=== PATIENT | male | born 1960 | race Caucasian/White ===

== ENCOUNTER 2019-02-10 07:20 | Day surgery (SDC) | payer OTHER ==
--- NOTE | 2019-02-09 11:34 | EKG ---
Test Date: 2019-02-09 Test Time: 10:20:03 Recreation Therapy Teacher: BECK MEASUREMENT RESULTS: Intervals: Rate: 56 FL: 164 QRSD: 94 QT: 396 QTc: 382 [place]: P: 66 FL: 164 QRS: 18 T: 28 INTERPRETIVE STATEMENTS: Sinus bradycardia with sinus arrhythmia Otherwise normal ECG No previous ECG available for comparison Electronically Signed On 02-09-19 11:34:16 CDT by Aamir Gutiérrez
--- OUTSIDE RECORDS SUMMARY | 2019-02-10 07:23 | XMS REPORT | Summary of Care ---
:1960 Author Organization [facility] Address [address] [place] [address] Care Team Providers Name Role Phone Shukri Cast MD Primary Care Provider Encounter Details Date Type Department Care Team Description 12/19/2018 Patient Secure [facility] Cardiology- Liudmila Frankel MD [address] [place] [address] [place] [address] [phone] Allergies No Known Allergiesdocumented as of this encounter (statuses as of 01/21/2019) Medications Medication Sig Dispensed Refills Start Date End Date Status diltiazem 120 mg 24 hr Take 120 mg by 0 Active capsule mouth daily. documented as of this encounter (statuses as of 01/21/2019) Active Problems Problem Noted Date Atrial fibrillation, new onset 11/22/2018 Snoring 11/22/2018 Witnessed episode of apnea 11/22/2018 Chronic nasal congestion 11/22/2018 documented as of this encounter (statuses as of 01/21/2019) Immunizations Name Administration Dates Next Due TDAP (ADACEL) VACCINE 10/26/2013 documented as of this encounter Social History Tobacco Use Types Packs/Day Years Used Date Never Smoker Smokeless Tobacco: Never Used Alcohol Use Drinks/Week oz/Week Comments Yes occasionally Sex Assigned at Date Recorded Not on file Job Start Date Occupation Industry Not on file Not on file Not on file Travel History Travel Start Travel End No recent travel history available. documented as of this encounter Last Filed Vital Signs Not on filedocumented in this encounter Plan of Treatment Date Type Specialty Care Team Description 05/29/2019 Office Visit Cardiology Liudmila Frankel MD [address] [place] [address] [place] [address] [phone] Health Maintenance Due Date Last Done Comments HEPATITIS C (HCV) SCREEN 1960 Zoster Recombinant Vaccine 2009 (SHINGRIX) (1 of 2) INFLUENZA VACCINE 02/26/2019 COLONOSCOPY 10/27/2019 10/26/2009 DTaP,Tdap,and Td Vaccines (2 - Td) 10/27/2023 10/26/2013 PNEUMOCOCCAL 0-64 YEARS COMBINED Aged Out No longer eligible based on SERIES patient's age to complete this topic documented as of this encounter Results Not on filedocumented in this encounter Insurance Payer Benefit Plan / Group Subscriber ID Effective Dates Phone Address Type AETNA AETNA HMO [id number] 2012-Present HMO documented as of this encounter
--- OUTSIDE RECORDS SUMMARY | 2019-02-10 07:23 | XMS REPORT ---
:1960 [facility] Address [address] [place] [address] Dr. Blue [address] [place] [address] Care Team Providers Name Role Phone Unavailable Unavailable Unavailable Problems This patient has no known problems. Allergies, Adverse Reactions, Alerts This patient has no known allergies or adverse reactions. Medications This patient has no known medications.
[2019-02-10] MEDS ORDERED: Ringers Lactate 1,000 ML IV ONE (07:24)
[2019-02-10] MEDS: OXYMETAZOLINE HCL 0.05% 15ML NAS ONE ×3 (07:30→07:44)
[2019-02-10] MEDS ORDERED: FENTANYL CITR 100 MCG/2 ML ONE (07:44)
[2019-02-10] MEDS ORDERED: ROCURONIUM 50 MG/5 ML VIAL IV ONE (07:45)
[2019-02-10] MEDS ORDERED: LIDOCAINE 2% MPF 5 ML VIAL ONE (07:45)
[2019-02-10] MEDS ORDERED: MIDAZOLAM HCL 2 MG/2 ML INJ ONE (07:45)
[2019-02-10] MEDS ORDERED: PROPOFOL 200 MG/20 ML VIAL IV ONE (07:45)
[2019-02-10] MEDS ORDERED: OXYMETAZOLINE HCL 0.05% 15ML NAS ONE (07:56)
[2019-02-10] MEDS ORDERED: SUCCINYLCHOLINE 20 MG/ML (10 ML) IV ONE (07:58)
[2019-02-10] MEDS: LIDOCAINE 1% W/EPI 1:100,000 MDV 20 ML VIAL ONE ×2 (08:10→08:41)
[2019-02-10] MEDS ORDERED: NA CHLORIDE 0.9% 0 ML ONE (08:40)
[2019-02-10] MEDS ORDERED: dexAMETHasone 4 MG/ML VIAL ONE (09:49)
[2019-02-10] MEDS ORDERED: ONDANSETRON 4 MG/2 ML VIAL ONE (09:49)
--- NOTE | 2019-02-10 09:55 | P.BOP ---
Preoperative diagnosis: nasal obstruction, septal deviation Postoperative diagnosis: same Primary procedure: septoplasty Secondary procedure: turbinate downfracture E Learning Designer: NONE,NONE Estimated blood loss: 15ml Specimen: none Anesthesia: General Implants: Miles splints Fluids & blood products: 1200ml crystalloid Transferred to: Recovery Room Condition: Good
--- NOTE | 2019-02-10 22:00 | OP ---
Date of Procedure: 02/10/2019 Surgeon: Adriana Godinez MD Preoperative Diagnoses: Nasal obstruction, septal deviation. Postoperative Diagnoses: Nasal obstruction, septal deviation. Procedure: Septoplasty with downfracture of inferior turbinates. Indication For Procedure: Oswald Leigh presented with bilateral nasal obstruction. He was noted to have an S-shaped deformity of the nasal septum. The risks, benefits, and alternatives to the proced ure were discussed with the patient who agreed to proceed. Description Of Procedure: The patient was brought to the operating room. He was placed under genera l anesthesia via oral endotracheal tube. The head of bed was turned 90 degrees. The nasal hairs wer e trimmed and then the nasal cavity was packed with Afrin-soaked pledgets. After time for effect, th edilia were removed and the nose was examined using a nasal speculum and headlight. The caudal aspect o f the cartilaginous septum was noted to deviate into the right nasal cavity. There was a left septal spur and prominent left maxillary crest. A right hemitransfixion incision and bilateral mucopericho ndrial flaps were elevated. The posterior aspect of the cartilaginous septum was excised leaving a g enerous L-strut. The bony portion of the septal spur and high left septal deviation was removed usin g scissors and [place] rongeurs. Bony fragments and small cartilaginous fragments were removed using Maria Ines forceps. During elevation of the left mucoperichondrial flap, the mucosal flap tore especi ally in the area over the septal spur. The cartilaginous septum was then repositioned closer to midl ine and secured using a 4-0 PDS suture. The septum then appeared to be midline. A Fernando elevator was used to downfracture the bilateral inferior turbinates in order to improve the nasal airway. Wit h intraoperative decongestion, the turbinates did not appear to be significantly enlarge and decision was made to forego submucous resection. The hemitransfixion incision was then closed with a running plain gut suture. Due to the mucosal tear on the left-hand side, decision was made to place Miles s plints. A Miles airway splint was placed in the right and left nasal cavity and secured to the nasal septum using a single 4-0 nylon suture. The nasopharynx was suctioned. The oropharynx was suctione d. The patient was returned to care of Anesthesia for awakening and extubation in the operating room , which proceeded without difficulty. Complications: None. Specimens: None. Disposition: Patient will follow up with Dr. Godinez in 10-12 days for removal of nasal airway splin ts. MOIRA/PATRICIA Voice ID: [id number] Report ID: [id number]
== END 2019-02-10 13:00 | disposition home or self-care (01) ==
LOC: OR 07:20
PROVIDERS: ATTEND Otolaryngology
PROC: 09SM4ZZ Reposition Nasal Septum, Percutaneous Endoscopic Approach (ICD-10-PCS; principal; 2019-02-10 08:30)
DX: J34.2 Deviated nasal septum (principal); J34.3 Hypertrophy of nasal turbinates; J34.89 Other specified disorders of nose and nasal sinuses; R06.83 Snoring; I48.91 Unspecified atrial fibrillation; Z82.3 Family history of stroke; Z82.49 Family history of ischemic heart disease and other diseases of the circulatory system
CPT/HCPCS: 93005; 30520; 30930; J2704; J0330; J2250; J3010; J2405

== ENCOUNTER 2024-06-18 14:26 | Emergency (ER) | payer OTHER ==
[2024-06-18] MEDS ORDERED: NA CHLORIDE 0.9% 500 ML ONE (14:44)
[2024-06-18 14:55] LABS: Absolute Eosinophils 0.1 K/uL (0-0.5); Absolute Lymphocytes (CBC) 1.2 K/uL (0.7-4.9); Absolute Monocytes 0.5 K/uL (0.1-1.3); Absolute Neutrophil 3.6 K/uL (1.8-8.0); Basophils % 0.5 % (0-1.3); Eosinophils % 1.3 % (0-4.4); Hematocrit 42.2 % (39.6-49.0); Hemoglobin 14.5 g/dL (13.6-17.9); Lymphocytes % 22.4 % (15.3-44.8); MCHC 34.3 g/dL (32.0-36.0); MCV 93.3 fL (80-100); MPV 7.7 fL (7.6-11.3); Monocytes % 9.2 % (3.3-12.3); Neutrophils % 66.6 % (41.7-73.7); Nucleated Red Blood Cells % 0.1 % (0-0); Platelets 306 thou/uL (152-406); RBC Red Blood Cell Count 4.52 M/uL (4.33-5.43); Red Cell Distribution Width 13.2 % (12.1-15.2)
[2024-06-18 15:02] LABS: PT Prothrombin Time 10.9 SECONDS (9.4-12.5); Protime INR 0.97
[2024-06-18 15:09] LABS: Albumin 3.6 g/dL (3.4-5.0); Anion Gap 4.9 mEq/L (5.0-15.0); Bilirubin Total 0.5 mg/dL (0.2-1.0); Globulin 3.5 g/dL (2.3-3.5); Potassium 3.9 mEq/L (3.5-5.1); Protein, Total 7.1 g/dL (6.4-8.2)
--- NOTE | 2024-06-18 15:31 | ER ---
Nurse's Notes [facility] Name: Oswald Leigh Age: 64 yrs Sex: Male : 1960 Arrival Date: 06/18/2024 Time: 14:26 Bed 5 Private MD: Diagnosis: Edema, unspecified;Pain in right lower leg-swelling right lower extremity;Cellulitis and acute lymphangitis of other parts of limb-right lower extremity Presentation: 06/18 14:40 Chief complaint: Patient states: right calf swollen and tender x1 week. No redness. tm6 Coronavirus screen: Client denies travel out of the [place] in the last 14 days. Ebola Screen: Patient negative for fever greater than or equal to 101.5 degrees Fahrenheit, and additional compatible Ebola Virus Disease symptoms Patient denies exposure to infectious person. Patient denies travel to an Ebola-affected area in the 21 days before illness onset. No symptoms or risks identified at this time. Initial Sepsis Screen: Does the patient meet any 2 criteria? No. Patient's initial sepsis screen is negative. Does the patient have a suspected source of infection? No. Patient's initial sepsis screen is negative. Risk Assessment: Do you want to hurt yourself or someone else? Patient reports no desire to harm self or others. Onset of symptoms was June 10, 2024. 14:40 Method Of Arrival: Ambulatory tm6 14:40 Acuity: DARIUS 3 tm6 Triage Assessment: 14:41 General: Appears in no apparent distress. Behavior is calm, cooperative. Pain: tm6 Complains of pain in right calf Pain currently is 1 out of 10 on a pain scale. Pain began x1 week. EENT: No signs and/or symptoms were reported regarding the EENT system. Neuro: Level of Consciousness is awake, alert, obeys commands, Oriented to person, place, time, situation. Cardiovascular: Patient's skin is warm and dry. Respiratory: Airway is patent Respiratory effort is even, unlabored, Respiratory pattern is regular, symmetrical. GI: No signs and/or symptoms were reported involving the gastrointestinal system. Abdomen is flat, non-distended. : No signs and/or symptoms were reported regarding the genitourinary system. Derm: No signs and/or symptoms reported regarding the dermatologic system. Musculoskeletal: Reports pain in right calf since x1 week. Pain is 1 out of 10 on a pain scale. swelling in right calf x1 week. Historical: - Allergies: 14:41 No Known Allergies; tm6 - PMHx: 14:41 Hypercholesterolemia; tm6 - PSHx: 14:41 None; tm6 - Immunization history:: Flu vaccine is up to date. - Infectious Disease History:: Denies. - Social history:: Smoking status: Patient denies any tobacco usage or history of. - Family history:: not pertinent. Screenin:47 [facility] ED Fall Risk Assessment (Adult) History of falling in the last 3 months, tm6 including since admission No falls in past 3 months (0 pts) Confusion or Disorientation No (0 pts) Intoxicated or Sedated No (0 pts) Impaired Gait No (0 pts) Mobility Assist Device Used No (0 pt) Altered Elimination No (0 pt) Score/Fall Risk Level 0 - 2 = Low Risk Oriented to surroundings, Maintained a safe environment. Abuse screen: Denies threats or abuse. Denies injuries from another. Nutritional screening: No deficits noted. Tuberculosis screening: No symptoms or risk factors identified. Assessment: 14:56 General: Appears in no apparent distress. comfortable, well groomed, Behavior is calm, ph cooperative, appropriate for age. Pain: Complains of pain in right leg. Neuro: Level of Consciousness is awake, alert, obeys commands, Oriented to person, place, time, situation. Cardiovascular: Capillary refill < 3 seconds in bilateral fingers Patient's skin is warm and dry. Respiratory: Airway is patent Respiratory effort is even, unlabored, Respiratory pattern is regular, symmetrical. Derm: Skin is pink, warm \T\ dry. Musculoskeletal: Circulation, motion, and sensation intact. Range of motion: intact in all extremities, Swelling present in right leg. Vital Signs: 14:40 BP 135 / 73; Pulse 73; Resp 17; Temp 98.8(O); Pulse Ox 99% on R/A; Weight 77.11 kg; tm6 Height 6 ft. 1 in. ; Pain 1/10; 14:57 BP 124 / 77; Pulse 65; Resp 18; Pulse Ox 98% on R/A; ph 16:07 BP 131 / 72; Pulse 67; Resp 18; Temp 98; Pulse Ox 98% on R/A; ph 14:40 Body Mass Index 22.43 (77.11 kg, 185.42 cm) tm6 14:40 Pain Scale: Adult tm6 ED Course: 14:28 Patient arrived in ED. im 14:32 Pedro Child MD is Attending Physician. jossie 14:37 Ruby Irving, RN is Primary Nurse. ph 14:41 Triage completed. tm6 14:41 Arm band placed on right wrist. tm6 14:47 Patient has correct armband on for positive identification. Placed in gown. Bed in low tm6 position. Call light in reach. Side rails up X 1. Adult w/ patient. Pulse ox on. NIBP on. Door closed. Noise minimized. Lights dimmed. Warm blanket given. Pillow given. 14:47 Inserted saline lock: 22 gauge in right forearm, using aseptic technique. Blood tm6 collected. Flushed with 10 mL NS. Patient maintains SpO2 saturation greater than 95% on room air. 14:48 PT-INR Sent. tm6 14:48 Comprehensive Metabolic Panel Sent. tm6 14:48 CBC with Diff Sent. tm6 15:29 Norris Wilkes MD is Referral Physician. jossie 15:31 US Extremity Venous W Compression Nathan In Process Unspecified. EDMS 15:46 Tib Fib Right XRAY In Process Unspecified. EDMS 16:07 No provider procedures requiring assistance completed. IV discontinued, intact, ph bleeding controlled, No redness/swelling at site. Pressure dressing applied. Administered Medications: 14:48 Drug: NS 0.9% IV 500 ml 500 ml IV at 1 bolus once; to be given as a bolus over 30 tm6 minutes Volume: 500 ml; Route: IV; Rate: 1 bolus; Site: right forearm; 16:06 Follow up: Response: No adverse reaction; IV Status: Completed infusion; IV Intake: ph 500ml 16:06 Drug: Trimethoprim-Sulfamethoxazole PO (160 mg-800 mg (DS) 1 tablet PO once Route: PO; ph 16:06 Follow up: Response: No adverse reaction ph 16:07 Drug: Cephalexin PO 500 mg PO once Route: PO; ph 16:07 Follow up: Response: No adverse reaction ph Medication: 14:56 VIS not applicable for this client. ph Intake: 16:06 IV: 500ml; Total: 500ml. ph Outcome: 15:30 Discharge ordered by . jossie 16:07 Discharged to home ambulatory, with significant other, ph 16:07 Condition: good 16:07 Discharge instructions given to patient, significant other, Instructed on discharge instructions, follow up and referral plans. medication usage, Demonstrated understanding of instructions, follow-up care, medications, Prescriptions given X 3, 16:08 Patient left the ED. ph Signatures: Dispatcher [employer] Pedro Snell MD MD cha Hall, Patricia, RN RN ph Rosalind Meek Tawney RN RN tm6
--- NOTE | 2024-06-18 15:31 | EDPHYS ---
Physician Documentation [facility] Name: Oswald Leigh Age: 64 yrs Sex: Male : 1960 Arrival Date: 06/18/2024 Time: 14:26 Bed 5 Private MD: ED Physician Pedro Child HPI: 06/18 14:59 This 64 yrs old Male presents to ER via Ambulatory with complaints of Leg Swelling - jossie right. 14:59 The patient presents with decreased range of motion, pain, that is acute. The jossie complaints affect the lateral aspect of right calf, right calf, medial aspect of right calf and right sampson. Context: resulted from an unknown cause, the patient can fully bear weight. Onset: The symptoms/episode began/occurred 7 day(s) ago. Modifying factors: The symptoms are alleviated by nothing. the symptoms are aggravated by nothing. Treatment prior to arrival includes: no previous treatment. Severity of symptoms: At their worst the symptoms were moderate, in the emergency department the symptoms are unchanged. The patient has not experienced similar symptoms in the past. Historical: - Allergies: 14:41 No Known Allergies; tm6 - PMHx: 14:41 Hypercholesterolemia; tm6 - PSHx: 14:41 None; tm6 - Immunization history:: Flu vaccine is up to date. - Infectious Disease History:: Denies. - Social history:: Smoking status: Patient denies any tobacco usage or history of. - Family history:: not pertinent. ROS: 14:59 Constitutional: Negative for fever, chills, and weight loss, Eyes: Negative for injury, jossie pain, redness, and discharge, ENT: Negative for injury, pain, and discharge, Neck: Negative for injury, pain, and swelling, Cardiovascular: Negative for chest pain, palpitations, and edema, Respiratory: Negative for shortness of breath, cough, wheezing, and pleuritic chest pain, Abdomen/GI: Negative for abdominal pain, nausea, vomiting, diarrhea, and constipation, Back: Negative for injury and pain, : Negative for injury, bleeding, discharge, and swelling, Skin: Negative for injury, rash, and discoloration, Neuro: Negative for headache, weakness, numbness, tingling, and seizure, Psych: Negative for depression, anxiety, suicide ideation, homicidal ideation, and hallucinations, Allergy/Immunology: Negative for hives, rash, and allergies, Endocrine: Negative for neck swelling, polydipsia, polyuria, polyphagia, and marked weight changes, Hematologic/Lymphatic: Negative for swollen nodes, abnormal bleeding, and unusual bruising, 14:59 MS/extremity: Positive for pain, swelling, tenderness, of the lateral aspect of right calf, right calf, medial aspect of right calf and right sampson, Exam: 14:59 Constitutional: This is a well developed, well nourished patient who is awake, alert, jossie and in no acute distress. Head/Face: Normocephalic, atraumatic. Eyes: Pupils equal round and reactive to light, extra-ocular motions intact. Lids and lashes normal. Conjunctiva and sclera are non-icteric and not injected. Cornea within normal limits. Periorbital areas with no swelling, redness, or edema. ENT: Nares patent. No nasal discharge, no septal abnormalities noted. Tympanic membranes are normal and external auditory canals are clear. Oropharynx with no redness, swelling, or masses, exudates, or evidence of obstruction, uvula midline. Mucous membranes moist. Neck: Trachea midline, no thyromegaly or masses palpated, and no cervical lymphadenopathy. Supple, full range of motion without nuchal rigidity, or vertebral point tenderness. No Meningismus. Chest/axilla: Normal chest wall appearance and motion. Nontender with no deformity. No lesions are appreciated. Cardiovascular: Regular rate and rhythm with a normal S1 and S2. No gallops, murmurs, or rubs. Normal PMI, no JVD. No pulse deficits. Respiratory: Lungs have equal breath sounds bilaterally, clear to auscultation and percussion. No rales, rhonchi or wheezes noted. No increased work of breathing, no retractions or nasal flaring. Abdomen/GI: Soft, non-tender, with normal bowel sounds. No distension or tympany. No guarding or rebound. No evidence of tenderness throughout. Back: No spinal tenderness. No costovertebral tenderness. Full range of motion. Male : Normal genitalia with no discharge or lesions. Skin: Warm, dry with normal turgor. Normal color with no rashes, no lesions, and no evidence of cellulitis. Neuro: Awake and alert, GCS 15, oriented to person, place, time, and situation. Cranial nerves II-XII grossly intact. Motor strength 5/5 in all extremities. Sensory grossly intact. Cerebellar exam normal. Normal gait. Psych: Awake, alert, with orientation to person, place and time. Behavior, mood, and affect are within normal limits. 14:59 Musculoskeletal/extremity: Circulation is intact in all extremities. Sensation intact. Compartment Syndrome exam of affected extremity: is normal. Joints: All joints appear normal with full range of motion. Weight bearing: able to fully bear weight, DVT Exam: negative Homans' sign noted on exam, no appreciated bluish discoloration, no erythema, no increased warmth, pain, swelling, tenderness, Vital Signs: 14:40 BP 135 / 73; Pulse 73; Resp 17; Temp 98.8(O); Pulse Ox 99% on R/A; Weight 77.11 kg; tm6 Height 6 ft. 1 in. ; Pain 1/10; 14:57 BP 124 / 77; Pulse 65; Resp 18; Pulse Ox 98% on R/A; ph 16:07 BP 131 / 72; Pulse 67; Resp 18; Temp 98; Pulse Ox 98% on R/A; ph 14:40 Body Mass Index 22.43 (77.11 kg, 185.42 cm) tm6 14:40 Pain Scale: Adult tm6 MDM: 14:32 Medical Screening Exam initiated jossie 15:01 Differential diagnosis: closed fracture, contusion, tendonitis. Data reviewed: vital jossie signs, nurses notes, lab test result(s), radiologic studies, CT scan, doppler. Consideration of Admission/Observation Escalation of care including admission/observation considered. I considered the following discharge prescriptions or medication management in the emergency department Medications were administered in the Emergency Department. See MAR. Independent interpretation of the following test(s) in the Emergency Department EKG: See my EKG interpretation above. Historians other than the Patient: Spouse/Significant Other: well informed. Care significantly affected by the following chronic conditions: high chlesterol. 06/18 14:33 Order name: CBC with Diff; Complete Time: 15:21 jossie 06/18 14:33 Order name: Comprehensive Metabolic Panel; Complete Time: 15:21 jossie 06/18 14:33 Order name: PT-INR; Complete Time: 15:21 jossie 06/18 15:58 Order name: CK sb4 06/18 14:33 Order name: US Extremity Venous W Compression Nathan; Complete Time: 15:53 jossie 06/18 14:55 Order name: Tib Fib Right XRAY jossie Administered Medications: 14:48 Drug: NS 0.9% IV 500 ml 500 ml IV at 1 bolus once; to be given as a bolus over 30 tm6 minutes Volume: 500 ml; Route: IV; Rate: 1 bolus; Site: right forearm; 16:06 Follow up: Response: No adverse reaction; IV Status: Completed infusion; IV Intake: ph 500ml 16:06 Drug: Trimethoprim-Sulfamethoxazole PO (160 mg-800 mg (DS) 1 tablet PO once Route: PO; ph 16:06 Follow up: Response: No adverse reaction ph 16:07 Drug: Cephalexin PO 500 mg PO once Route: PO; ph 16:07 Follow up: Response: No adverse reaction ph Disposition Summary: 06/18/24 15:30 Discharge Ordered Notes: Location: Home jossie Problem: new jossie Symptoms: have improved jossie Condition: Stable jossie Diagnosis - Edema, unspecified jossie - Cellulitis and acute lymphangitis of other parts of limb - right lower extremity jossie - Pain in right lower leg - swelling right lower extremity(06/18/24 15:37) jossie Followup: jossie - With: Private Physician - When: 2 - 3 days - Reason: Recheck today's complaints, Continuance of care, Re-evaluation by your physician Followup: jossie - With: Norris Wilkes MD - When: 2 - 3 days - Reason: Recheck today's complaints, Re-evaluation by your physician Discharge Instructions: - Discharge Summary Sheet jossie - Cellulitis, Adult jossie - Edema jossie - Musculoskeletal Pain jossie - Cellulitis, Adult, [id number]-[id number] jossie - Edema, Dsnr-[id number]-Bsag [facility] Forms: - Medication Reconciliation Form [facility] - Antibiotic Education jossie - Prescription Opioid Use jossie - Patient Portal Instructions [facility] - Leadership Thank You Letter [facility] Prescriptions: - Cephalexin 500 mg Oral capsule - take 1 capsule ORAL route every 6 hours for 7 days; 28 capsule; Refills: 0, [facility] Product Selection Permitted - Ibuprofen 600 mg Oral Tablet - take 1 tablet ORAL route every 6 hours As needed take with food; 30 tablet; [facility] Refills: 0, Product Selection Permitted - Bactrim DS 800-160 mg Oral Tablet - take 1 tablet ORAL route every 12 hours for 7 days; 14 tablet; Refills: 0, [facility] Product Selection Permitted Signatures: Dispatcher [employer] EDMS Pedro Child MD MD cha Hall, Patricia, RN RN Jose Harris RN RN tm6 Corrections: (The following items were deleted from the chart) 14:33 14:33 CBC+H.LAB.BRZ ordered. EDMS EDMS 14:33 14:33 COMPREHENSIVE METABOLIC PANEL+C.LAB.BRZ ordered. EDMS EDMS 14:33 14:33 PROTIME (+INR)+COAG.LAB.BRZ ordered. EDMS EDMS 15:12 15:12 Chest For PE Angio+CT.RAD.BRZ ordered. EDMS EDMS 15:37 15:30 Pain in right lower leg jossie sethi
--- NOTE | 2024-06-18 15:34 | RAD REPORT ---
EXAMINATION: US BILATERAL LOWER EXTREMITY VENOUS DOPPLER CLINICAL INDICATION: PAIN TECHNIQUE: Complete bilateral duplex sonography of the BILATERAL lower extremity veins was performed. The examination included compression for vein patency, color Doppler imaging and flow augmentation in response to distal compression of the distal external iliac, common femoral, femoral, popliteal, t ibial, and great and small saphenous veins. COMPARISON: No prior exam. FINDINGS: Duplex sonography testing of the veins of the BILATERAL lower extremity was performed. Color flow codey ging shows all veins to be compressible with [id number] color filling. Pulsatile and phasic flow is present within all lower extremity deep and superficial veins examined. IMPRESSION: There is no deep vein or superficial vein thrombosis.
[2024-06-18] MEDS ORDERED: CEPHALEXIN 250 MG CAP ONE (15:50)
[2024-06-18] MEDS ORDERED: SMZ./TMP. 800/160 MG TABLET ONE (15:50)
--- NOTE | 2024-06-18 16:10 | RAD REPORT ---
EXAMINATION: XR RIGHT TIBIA AND FIBULA CLINICAL INDICATION: PAIN TECHNIQUE:Two view radiograph of the right tibia and fibula were obtained. COMPARISON: No prior exam. FINDINGS: No bone or joint abnormality detected. Small calcaneal spurs.
[2024-06-18 16:30] VITALS: O2SAT 98
[2024-06-18 16:32] VITALS: BP 131/72; TEMP 98
== END 2024-06-18 16:08 | disposition home or self-care (01) ==
LOC: ER 14:26
DX: R60.9 Edema, unspecified (principal); L03.115 Cellulitis of right lower limb; L03.125 Acute lymphangitis of right lower limb; M79.661 Pain in right lower leg
CPT/HCPCS: 85025; 36415; 82550; 85610; 80053; 73590; 93970; 96360; 99284; J7040